=== PATIENT | male | born 1960 | race Caucasian/White ===

== ENCOUNTER 2017-03-13 16:07 | Emergency (ER) | payer SELFPAY ==
[2017-03-13] MEDS ORDERED: DIPH,PERTUSS(ACELL),TET VAC/PF 0.5 ML DISP.SYRIN IM ONE (16:20)
[2017-03-13 17:58] VITALS: BP 146/85
--- NOTE | 2017-03-13 22:31 | ED Physician Documentation ---
Upper Extremity Injury - HPI Stated Complaint: needle stick Chief Complaint: Upper Extremity Injury Additional Information: needle stick cleaning out bung [employer] Onset: just prior to arrival Where: work Severity: mild Duration: persistent since (injury) Context: other (needle stick) Associated Symptoms: tingling (minimal) Modifying Factors: none Further Comments: no - ROS CONST: no problems CVS/RESP: none NEURO: none MS/SKIN/LYMPH: none GI/: denies: problems urinating, nausea, vomiting - PAST HX Past History: none Immunizations: tetanus Allergies/Adverse Reactions: Allergies Allergy/AdvReac Type Severity Reaction Status Date / Time No Known Allergies Allergy Verified 03/13/17 16:43 Home Medications: Ambulatory Orders Medication Instructions Recorded NK [NK] 03/13/17 - SOCIAL HX Smoking History: non-smoker Alcohol Use: none Drug Use: none - FAMILY HX Family History: no significant history - VITAL SIGNS Vital Signs: Vital Signs Temp Pulse Resp BP Pulse Ox 98.2 F 67 20 146/85 99 03/13/17 16:08 03/13/17 17:25 03/13/17 17:25 03/13/17 16:08 03/13/17 17:25 - REVIEWED ASSESSMENTS Nursing Assessment Reviewed: Yes Vitals Reviewed: Yes Progress - Results/Orders Results/Orders: hiv and hepatitis panel ordered - Progress Progress: adacel given im in er Critical Care Note - Critical Care Note Total Time (mins): 0 ED Results Lab/Radiology - Lab Results Lab Results: hiv and hepatitis profile drawn - Radiology Radiology Impressions: none ordered - Orders Orders: ED Orders Category Date Time Status Further Nursing Orders 1T Care 03/13/17 16:34 Active HEPATITIS B SURFACE AB,QUANT Routine Lab 03/13/17 16:40 Received HEPATITIS C ANTIBODY Routine Lab 03/13/17 16:40 Received HIV-1/2 COMBO AG/AB KODI,REFLEX Routine Lab 03/13/17 16:40 Received Diph,Pertuss(Acell),Tet Vac/Pf [Adacel] Med 03/13/17 16:20 Discontinued 0.5 ml IM .STK-MED ONE Upper Extremity Injury Physic - Physical Exam General Appearance: alert, mild distress Hand: soft tissue tenderness (with no obvious puncture site left 3rd finger) Wrist: normal inspection, non-tender, no evidence of injury, normal ROM Elbow/Forearm: normal inspection, non-tender, no evidence of injury, normal ROM Shoulder: normal inspection, non-tender, no evidence of injury, normal ROM Neuro/Vascular/Tendon: no vascular compromise, motor nml, sensation nml, abnml color (bruising/minimal erythema) Skin: warm,dry, other (see above) Head/ENT: nml inspection, pharynx nml Neck/Back: nml inspection, non-tender Resp/CVS: chest non-tender, breath sounds nml, heart sounds nml, no resp. distress, lungs clear, reg. rate & rhythm Abdomen: non-tender Discharge Clincal Impression: Needlestick injury of finger Qualifiers: Encounter type: initial encounter Qualified Code(s): S61.239A - Puncture wound without foreign body of unspecified finger without damage to nail, initial encounter; W27.3XXA - Contact with needle (sewing), initial encounter; W27.3XXA - Contact with needle (sewing), initial encounter Referrals: Primary Doctor,No [Primary Care Provider] - 2 Days Comments: discharged home with script for keflex 500 mg 2 p.o. bid x 10 days and ultram 50 mg #10 1 p.o. qid prn pain Condition: Stable Disposition: 01 HOME, SELF-CARE Decision to Admit: NO Decision Time: 17:20
== END 2017-03-13 17:00 | disposition home or self-care (01) ==
LOC: ED 16:07
DX: S61.239A Puncture wound without foreign body of unspecified finger without damage to nail, initial encounter (principal); W27.3XXA Contact with needle (sewing), initial encounter; Y93.9 Activity, unspecified; Y99.9 Unspecified external cause status
CPT/HCPCS: 36415; 86703; 86706; 86803; 90471; 90715; 99283